=== PATIENT | female | born 1970 | race Caucasian/White ===

== ENCOUNTER → 2016-10-17 | Outpatient (CLI) | payer BC | LOC: FIMAGING 11:07 | PROVIDERS: ATTEND Family Medicine | DX: M79.89 Other specified soft tissue disorders (principal) ==

== ENCOUNTER → 2016-12-06 | Outpatient (CLI) | payer BC | LOC: FIMAGING 08:50 | DX: Z12.31 Encounter for screening mammogram for malignant neoplasm of breast (principal) | CPT/HCPCS: G0202 ==

== ENCOUNTER → 2017-12-09 | Outpatient (CLI) | payer BC | LOC: FIMAGING 08:41 | PROVIDERS: ATTEND Family Medicine | DX: Z12.31 Encounter for screening mammogram for malignant neoplasm of breast (principal) ==

== ENCOUNTER → 2018-06-04 | Outpatient (CLI) | payer BC | LOC: FCPNEURO 20:00 | PROVIDERS: ATTEND Internal Medicine Sleep Medicine | DX: G47.50 Parasomnia, unspecified (principal) ==

== ENCOUNTER → 2018-09-02 | Outpatient (CLI) | payer BC | LOC: FIMAGING 13:04 | PROVIDERS: ATTEND Family Medicine | DX: M25.461 Effusion, right knee (principal); S83.011A Lateral subluxation of right patella, initial encounter ==

== ENCOUNTER → 2018-12-15 | Outpatient (CLI) | payer BC | LOC: FIMAGING 07:43 | PROVIDERS: ATTEND Family Medicine | DX: Z12.31 Encounter for screening mammogram for malignant neoplasm of breast (principal) ==